=== PATIENT | female | born 1990 | race Caucasian/White ===

== ENCOUNTER 2019-05-05 08:00 | Outpatient (CLI) | payer OTHER ==
[2019-05-05 20:28] LABS: TRICHOMONAS VAGINALIS DNA NEGATIVE (NEGATIVE)
== END 2019-05-05 23:59 | disposition home or self-care (01) ==
LOC: LAB.R 08:00
PROVIDERS: ATTEND Nurse Practitioner Obstetrics & Gynecology
DX: Z36.85 Encounter for antenatal screening for Streptococcus B (principal); Z11.3 Encounter for screening for infections with a predominantly sexual mode of transmission
CPT/HCPCS: 87491; 87591; 87661; 87797

== ENCOUNTER 2019-05-25 06:29 | Inpatient (IN) | payer OTHER ==
[2019-05-25] MEDS ORDERED: SODIUM CHLORIDE FLUSH 0.9% 10 ML SYRINGE IVP PRN (06:46)
[2019-05-25 07:15] LABS: BASOPHILS % (AUTO) 0.3 %; EOSINOPHILS # (AUTO) 0.1 10^3/uL (0.0-0.7); HGB - HEMOGLOBIN 11.5 g/dL (12.0-16.0); LYMPHOCYTES % (AUTO) 28.7 %; MEAN CORPUSCULAR HEMOGLOBIN 27.4 pg (27.0-31.0); MEAN CORPUSCULAR HGB CONC 32.4 g/dL (32.0-36.0); MEAN CORPUSCULAR VOLUME 84.7 fL (81.0-99.0); MEAN PLATELET VOLUME 9.9 fL (7.9-10.8); MONOCYTES # (AUTO) 0.4 10^3/uL (0.0-1.0); MONOCYTES % (AUTO) 5.9 %; NEUTROPHILS # (AUTO) 4.4 10^3/uL (1.5-6.6); NEUTROPHILS % (AUTO) 62.4 %; PLT - PLATELET COUNT 214 10^3/uL (130-450); RED BLOOD COUNT 4.19 10^6/uL (4.20-5.40); RED CELL DISTRIBUTION WIDTH 13.6 % (12.0-15.0); WHITE BLOOD COUNT 7.1 x10^3/uL (4.8-10.8)
[2019-05-25] MEDS: SODIUM CHLORIDE FLUSH 0.9% 10 ML SYRINGE IVP SCH ×2 (10:35→16:42)
[2019-05-25] MEDS: LACTATED RINGERS 1,000 ML IV SCH ×2 (10:35→16:27)
[2019-05-25] MEDS: miSOPROStoL 100 MCG TABLET BC SCH ×2 (10:37→16:27)
--- NOTE | 2019-05-25 13:00 | HISTORY & PHYSICAL EXAMINATION ---
Admit History - Visit Reason Visit Reason: Other - : 2 Parity: 1 Premature: 0 Ectopic: 0 : 0 Care: positive: [facility] Risk/History: positive: None Complications This : positive: None Smoking Status: Never smoker - Mother's Labs Mother's Blood Type: positive: B Mother's RH: positive: Positive GBS: positive: Group B Step Negative Rubella Status: positive: Immune Meds/Allgy - Allergies Allergies/Adverse Reactions: Allergies Allergy/AdvReac Type Severity Reaction Status Date / Time No Known Drug Allergies Allergy Verified 05/25/19 06:52 Physical - Abdominal Exam Vital Signs: Temp Pulse Resp BP Pulse Ox 36.6 C 123 H 18 116/65 99 05/25/19 06:49 05/25/19 06:49 05/25/19 06:49 05/25/19 06:49 05/25/19 06:49 Plan for Labor - Plan For Labor Plan for Labor: HPI: This 28yo @ 39.2wks gestation by 10wk U/S who presented to [facility] f or elective induction of labor. She denies vaginal bleeding or leakage of fluid and reports +FM. Upon arrival she was noted to be 2-3/30/-2, posterior, vertex with intact membranes. She has been a patient of [facility] since her transfer of care from [facility] at 32wks gestation. Prior to this she had received consistent care through the duration of her which has remained uncomplicated. She was placed in observation status on [facility] for pre-induction cervical ripening. Dating Criteria: LMP: Initial U/S: 11/03/2018 @ 10.2 wks gives MIKE 05/30/2019 Serial exams- agree OBHx: G1: 03/18/2017 @ 41wks, epidural, female, 3232g G2: Current Medications: PNV; Flonase allergy relief PRN Allergies: NKDA PMHx: No significant Surgical Hx: [place] teeth removal; ear tubes x 2 Social Hx: Never smoker, no ETOH or IVDA. active duty Family Hx: Hypertension - father, mother; alcoholism - MGM, MGF; Stroke/CVA - MGM labs: B pos/Rubella immune Hgb 12.1; Hct 36.5; PLT 182 Hep B neg; Hep C neg VZV immune; RPR non-reactive HIV non-reactive GC/CT neg Pap 11/03/18 WNL - HPV neg Gentic testing: Serum integrated sceen negative Glucola 113 GBS & GC/CT NEG x3 Ultrasounds: Initial U/S: 11/03/2018 @ 10.2 wks gives MIKE 05/30/2019 FAS: WNL. Posterior placenta, no previa. 3VC. size c/w initial ultrasound dating Immunizations: TDAP 03/08/2019 Physical Exam: Normocephalic, atraumatic Heart RRR w/o M/G/R Lungs CTAB Abdomen gravid, soft, nontender. EFW 3100g SVE 2-3/30/-2, posterior, vertex. Intact membranes No contractions appreciated via tocometry FHR baseline 120s, moderate variability, + accels, no decels Bilateral LE's no edema Mood is good Assessment: 28yo @ 39.2wks gestation GBS neg Elective IOL Plan: Place in observation status on [facility] until SROM/AROM, active labor, or epidural placement. Continuous monitoring Pre-induction cervical ripening with misoprostol 50mcg BC q 4 hours Anticipate
--- NOTE | 2019-05-25 17:40 | PROVIDER PROGRESS NOTE ---
Labor Progress Note - Uterine Monitoring Uterine Monitoring Mode: positive: External toco Contraction Frequency (min/apart): 2-5 Contraction Intensity: positive: Moderate Uterine Resting Tone: positive: Soft - Monitoring Monitor Mode: positive: External ultrasound Heart Rate Variability: positive: Moderate (6-25 bmp) Accelerations: positive: Present, 15x15 Decelerations: positive: None Strip Review: positive: Category I - Vaginal Exam Dilation (in cm): 3 Effacement (%): 50 Station: -1 Cervical Position: Midposition - Labor Progress Note Labor Progress Note/Additional Text: S: Feeling the contractions are decreasing in both frequency and intensity. Was feeling them slightly earlier. She is doing well. Mood is good. O: FHR baseline 120s, moderate variability, +accels, no decels Contractions palpate mild every 3-5 minutes with soft resting tone. SVE 3/50/-1, posterior, vertex AROM moderate amount of clear fluid A: 28yo @ 39.2wks gestation Early labor Elective IOL GBS neg P: Expectant management x 4 hours. Give another dose of 50mcg BC misoprostol if contractions not increased in frequency and intensity x 4 hours Continuous monitoring Jacuzzi PRN. Nitrous Oxide PRN. Epidural per maternal request. Anticipate
[2019-05-25] MEDS ORDERED: OXYTOCIN/SODIUM CHLORIDE 500 ML IV ONE (19:39)
--- NOTE | 2019-05-25 20:49 | PROVIDER PROGRESS NOTE ---
Labor Progress Note - Uterine Monitoring Uterine Monitoring Mode: positive: External toco Contraction Frequency (min/apart): 2-4 Contraction Intensity: positive: Moderate to strong Uterine Resting Tone: positive: Soft - Monitoring Monitor Mode: positive: External ultrasound Heart Rate Baseline: 130 Heart Rate Variability: positive: Moderate (6-25 bmp) Accelerations: positive: Present, 15x15 Decelerations: positive: None Strip Review: positive: Category I - Vaginal Exam Dilation (in cm): 5 Effacement (%): 80 Station: 0 Cervical Position: Midposition - Labor Progress Note Labor Progress Note/Additional Text: S: Feeling contractions are starting to increase in intensity. Coping well. supportive at the bedside. She requests SVE. Mood is good. O: FHR baseline 130s, moderate variability, + accels, no decels Contractions palpate moderate every 2-4 minutes with soft resting tone SVE 5/80/0, midposition, vertex AROM x 3 hrs A: 28yo @ 39.2wks gestation by 10wk U/S Active labor P: Continue expectant management Jacuzzi PRN. Nitrous oxide PRN. Epidural PRN - intends unmedicated delivery May initiate intermittent monitoring Anticipate
[2019-05-25] MEDS ORDERED: ROPIVACAINE 0.2% 200 MG/100 ML BAG EP ONE (22:13)
--- NOTE | 2019-05-25 22:34 | ANESTHESIA ---
Pre-Anesthesia VS, & Labs - Diagnosis active labor - Procedure vaginal delivery Vital Signs: Temp Pulse Resp BP Pulse Ox 36.6 C 123 H 18 116/65 99 05/25/19 06:49 05/25/19 06:49 05/25/19 06:49 05/25/19 06:49 05/25/19 06:49 Height 5 ft 2 in Weight (kg) 71.214 kg - NPO Other (clear liquids) - Is Patient ?: Yes - Lab Results Current Lab Results: Laboratory Tests 05/25/19 07:00: WBC 7.1, RBC 4.19 L, Hgb 11.5 L, Hct 35.5 L, MCV 84.7, MCH 27.4, MCHC 32.4, RDW 13.6, Plt Count 214, MPV 9.9, Neut # (Auto) 4.4, Lymph # (Auto) 2.0, Amelia # (Auto) 0.4, Eos # (Auto) 0.1, Baso # (Auto) 0.0, Absolute Nucleated RBC 0.00, Nucleated RBC % 0.0 Fish Bones: 05/25/19 07:00 Home Medications and Allergies Active Medications Lactated Ringer's (Lr) 1,000 mls @ 150 mls/hr IV .Q6H40M [facility] Last Admin: 05/25/19 16:27 Dose: Not Given Misoprostol (Cytotec) 50 mcg BC Q4H [facility] Last Admin: 05/25/19 16:27 Dose: Not Given Sodium Chloride (Normal Saline Flush 0.9%) 10 ml IVP PRN PRN PRN Reason: NEEDED PER PROVIDER ORDERS Sodium Chloride (Normal Saline Flush 0.9%) 10 ml IVP 0100,0900,1700 [facility] Last Admin: 05/25/19 16:42 Dose: 10 ml PNV Allergies/Adverse Reactions: Allergies Allergy/AdvReac Type Severity Reaction Status Date / Time No Known Drug Allergies Allergy Verified 05/25/19 06:52 Anes History & Medical History - Anesthetic History Anesthesia Complications: reports: No previous complications - Medical History Cardiovascular: reports: High cholesterol Pulmonary: reports: None Gastrointestinal: reports: None Urinary: reports: None Neuro: reports: None Musculoskeletal: reports: None Endocrine/Autoimmune: reports: None Skin: reports: None Smoking Status: Never smoker Psychosocial: reports: No issues indicated - Surgical History Eyes Ears Nose Throat (EENT): Myringotomy (tubes) - Obstetrical History : 2 Parity: 1 Events: positive: None Complications: positive: None Exam General: Alert, Oriented x3, Cooperative, No acute distress Dental: WNL Mouth Openin Fingerbreadth Neck Mobility: Normal Mallampati classification: III Thyromental Distance: greater than 6 cm Mental/Cognitive Status: Alert/Oriented X3, Normal for patient Plan Anesthesia Type: Epidural Consent for Procedure(s) Verified and Reviewed: Yes Code Status: Attempt Resuscitation ASA classification: 2-Mild systemic disease Is this case an emergency?: No
[2019-05-25] MEDS ORDERED: ePHEDrine 50 MG/ML AMP IVP PRN (23:01)
[2019-05-25] MEDS ORDERED: NALOXONE 0.4 MG/ML VIAL IVP PRN (23:01)
[2019-05-25] MEDS ORDERED: ROPIVACAINE 0.2% 200 MG/100 ML BAG EP PRN (23:01)
[2019-05-25] MEDS ORDERED: NALBUPHINE 10 MG/ML AMP IVP PRN (23:01)
[2019-05-25] MEDS ORDERED: ONDANSETRON 4 MG/2 ML VIAL IVP PRN (23:01)
--- NOTE | 2019-05-26 00:32 | PROVIDER PROGRESS NOTE ---
Labor Progress Note - Uterine Monitoring Contraction Frequency (min/apart): 2-4 Contraction Intensity: positive: Strong Uterine Resting Tone: positive: Soft - Monitoring Heart Rate Baseline: 120 Heart Rate Variability: positive: Moderate (6-25 bmp) Accelerations: positive: Present, 15x15 Decelerations: positive: Early, Intermittent (<50% x20 min) Strip Review: positive: Category I - Labor Progress Note Labor Progress Note/Additional Text: S: Feeling comfortable with epidural. Feeling slightly anxious but overall doing well. supportive at the bedside. O: FHR baseline 120s, moderate variability, + accels, intermittent early decelerations and variables - overall reassuring Contractions palpate firm every 2-4 minutes with soft resting tone Last SVE 7-8/100/0, vertex A: 28yo @ 39.3wks gestation Active labor GBS neg FHR Category I P: Continuous monitoring Anticipate
[2019-05-26] MEDS: LACTATED RINGERS 1,000 ML IV SCH (02:19)
[2019-05-26] MEDS ORDERED: HYDROCORTISONE 1% CREAM 28 GM TUBE PR PRN (02:52)
[2019-05-26] MEDS ORDERED: WITCH HAZEL/GLYCERIN 1 PAD TOP PRN (02:52)
[2019-05-26] MEDS ORDERED: OXYTOCIN/SODIUM CHLORIDE 500 ML IV PRN (02:53)
--- NOTE | 2019-05-26 03:03 | DELIVERY NOTE ---
Delivery Note - Labor Labor: positive: Induced by ARM - Infant Delivery Method Delivery Method: positive: Spontaneous vaginal delivery - Cervical Ripening Method Cervical Ripening Method: positive: Misoprostil - Presentation Presentation: positive: Vertex, ANUSHKA - left occiput anterior - Nuchal Cord Nuchal Cord: positive: Present, Reduced - Amniotic Fluid Description Amniotic Fluid Description: positive: Clear - Episiotomy Type Episiotomy Type: positive: None - Laceration Laceration: positive: 1st degree, Labial - Suture Suture Type: positive: Vicryl Suture Size: positive: 3-0 - Delivery Outcome Delivery Outcome: positive: Livebirth - [place]: positive: Placed in direct skin contact with mother, Bulb syringe, Stimulated, Warmed, Finley used [place] sex: positive: Male - Cord Cord: positive: 3 vessels - Placenta Placenta: positive: Intact, Spontaneous - Estimated Blood Loss Estimated Blood Loss (in cc): 150 - Post Delivery Events Post Delivery Events: positive: No post delivery events - Delivery Comments (Free Text/Narrative) Delivery Comments (Free Text/Narrative): HPI: This 28yo @ 39.3wks gestation by 10wk U/S presented on 05/25/2019 for elective induction of labor. Cervix was 2-3/30/-2, posterior and vertex. FHR pattern demonstrated Category I baseline. She received 1 dose of 50mcg BC misprostol for effective pre-induction cervical ripening. AROM occurred at approximately 1730 and was noted to be a large amount of clear fluid. Normal labor course. Epidural placed upon maternal request. Pt progressed to c/c/+2 at 0215 with onset of active pushing at 0222. : Normal of viable male on 05/26/2019 @ 0232 in ANUSHKA position with compound right hand. Nuchal cord x 1 easily reduced. The was stimulated, dried, and placed skin to skin. 's 8/9 at 1 and 5 min respectively. The umbilical cord was allowed to stop pulsating at which time it was doubly clamped by CNM and cut by FOB. Pitocin administered via IV for hemostasis. Cord blood was obtained. 3VC. Placenta delivered spontaneously and intact at 0236. EBL 150mL. Fourth stage: Uterine fundus firm and there is no excessive bleeding. The perineum, vagina, and cervix were inspected and found to have a minor, 1st degree left labial laceration which was repaired using a 3-[address]-1 needle in standard fashion, under sterile conditions. Vaginal examination following repair was done. Tissues well approximated. initiated. Family bonding well. Both mother and baby were left in stable conditions.
[2019-05-26] MEDS: ACETAMINOPHEN 500 MG TABLET PO SCH ×3 (04:00→20:41)
[2019-05-26] MEDS: IBUPROFEN 800 MG TABLET PO SCH ×4 (04:00→23:43)
[2019-05-26] MEDS: DOCUSATE SODIUM 100 MG CAPSULE PO SCH ×2 (10:15→20:41)
[2019-05-27] MEDS: ACETAMINOPHEN 500 MG TABLET PO SCH (04:24)
[2019-05-27] MEDS: IBUPROFEN 800 MG TABLET PO SCH ×2 (05:38→11:30)
[2019-05-27 07:59] VITALS: BP 104/59
--- NOTE | 2019-05-27 08:01 | PROVIDER PROGRESS NOTE ---
Subjective - Subjective Subjective: S: Bonding well with baby. without difficulty. Pain well controlled with oral medications. Bleeding decreased and is light. Feeling well and desires to be discharged home today. O: BP 104/71, T 36.5, RR 15, HR 58 Heart RRR w/o M/G/R, lungs CTAB, abdomen soft and nontender with fundus firm at U-2, bilateral LE's no edema A: 28yo -->P2 PPD#1 s/p TSVD viable male Normal recovery P: Reviewed pp self care and warning s/sx Advised continuation of pNV while Advised continuation of ibuprofen and tylenol OTC PRN pain Return in 3 weeks for routine pp visit or sooner PRN. Objective - Vital Signs/Intake & Output Vital Signs: Vital Signs x48h Temp Pulse Resp BP Pulse Ox 05/27/19 04:00 36.5 C 58 L 16 107/71 99 Intake & Output: Intake & Output 05/24/19 05/25/19 05/26/19 05/27/19 23:59 23:59 23:59 23:59 Intake Total 1999 Balance 1999 - Lab Results Fish Bones: 05/25/19 07:00
--- NOTE | 2019-05-27 08:02 | Discharge Plan ---
Discharge Plan Problem Reviewed?: Yes Disposition: Home, Self Care Condition: Good Diet: Regular Activity Restrictions: No Restrictions Shower Restrictions: No Driving Restrictions: No Weight Bearing: Full Weight No Smoking: If you smoke, Please STOP! Call for help. Follow-up with: Kim Box CNM, ARNP [Provider Admit Priv/Credential] -
--- NOTE | 2019-05-27 08:35 | DISCHARGE SUMMARY ---
Physician: PRANEETH Monson DATE OF ADMISSION: 05/25/2019 DATE OF DISCHARGE: 05/27/2019 DIAGNOSES ON ADMISSION 1. A 28-year-old G2, P1-0-0-1. 2. Group B streptococcus negative. 3. Elective induction of labor. DIAGNOSES ON DISCHARGE 1. A 28-year-old G2, P2-0-0-2, status post spontaneous vaginal delivery on 05/26/2019. 2. . 3. Normal recovery. HISTORY OF PRESENT ILLNESS: She is a patient of [facility] who presented on 020 for elective induction of labor. Cervix was 2-3 cm dilated, 30% effaced, -2 position posterior a nd vertex. heart rate pattern demonstrated a category 1 throughout labor. She was given 1 dos e of 50 mcg buccal misoprostol for effective preinduction cervical ripening. Artificial rupture of m embranes occurred at approximately 1730. Patient progressed to spontaneously deliver a viable male i nfant on 05/26/2019 at 0232. Apgars were 8 and 9 at 1 and 5 minutes, respectively. EBL was 150 mL. The perineum, vagina and cervix were inspected and found to have a minor first-degree left labial la ceration, which was repaired using a 3-0 Vicryl on a CT1 needle in standard fashion under sterile con ditions. She has been doing well in her course. She is ambulating and tolerating a regular diet. She is urinating without difficulty and her lochia is normal. Her pain is well controlled with oral medications. She will be discharged home today on day #1 with instructions to continue he r vitamin while , and to continue taking ibuprofen and Tylenol [id number] as needed for pain management. She intends to followup with myself in 3 weeks for routine postpartu m visit or sooner if needed. She has been given precautions to call if she has any worsening fevers, chills, abdominal pain, increased bleeding or foul-smelling vaginal lochia. TD: 05/27/2019 08:07
[2019-05-27] MEDS: DOCUSATE SODIUM 100 MG CAPSULE PO SCH (10:14)
--- NOTE | 2019-05-27 13:45 | Labor Flowsheet ---
Labor Flowsheet Datetime Report Generated by CPN: 05/27/2019 13:45 Datetime: 05/26/2019 12:30 VITAL SIGNS NBP Sys/Rafaela/Mean (mmHg): 101 : 59 : 68 Pulse: 70 Datetime: 05/26/2019 04:44 Stage of : Recovery Respirations: 16 PAIN Pain Scale: 0 (Annotations: pain with fundal checks) Pain Presence: Intermittent Datetime: 05/26/2019 04:14 Pain Relief Measures: Pain Medication Given Datetime: 05/26/2019 03:44 Pain Assessment Comments: Pt wanting to take Tylenol and Motrin prior to cramping/discomfort becomm ing worse. Datetime: 05/26/2019 03:20 Patient Care Comments: IV SL Datetime: 05/26/2019 02:57 SpO2 (%): 100 Temperature (C): 37.0 Temperature Route: Oral Datetime: 05/26/2019 02:44 Anesthesia Comments: Epidural pump turned off Datetime: 05/26/2019 02:36 Medication Comments: Pitocin infusion began at 999 Datetime: 05/26/2019 02:32 STAGE 2 Stage 2 Comments: Delivery Datetime: 05/26/2019 02:29 UTERINE ACTIVITY Monitor Mode: External Frequency (min): 1.5-3 Duration (sec): 40-90 ASSESSMENT A Monitor Mode: Telemetry FHR Baseline Rate : 115 Variability: Moderate 6-25 bpm Accelerations: 15X15 Comments: pt pushing LaborFlag: Labor Datetime: 05/26/2019 02:28 Actions for Decelerations: Oxygen Applied Datetime: 05/26/2019 02:19 Communication Comments: Kim Charu in room at bedside Datetime: 05/26/2019 02:17 PATIENT CARE Patient Position/Activity: Left Tilt Datetime: 05/26/2019 02:15 VAGINAL EXAM Dilatation (cm): 10.0 Effacement (%): 100 Station: 1 Exam by: B.Messersmith, RN Vaginal Bleeding: Normal Show Datetime: 05/26/2019 02:00 Decelerations: None Category: Category I Datetime: 05/26/2019 01:00 Contraction Comments: coupling noted Datetime: 05/25/2019 23:50 Monitor Interventions for FHR: Ultrasound Adjusted Datetime: 05/25/2019 23:30 Cervix, Consistency: Soft Cervix, Position: Midposition I/O Interventions: Manning Cath Inserted Datetime: 05/25/2019 23:29 Quality: Moderate Pattern: Normal: <= 5 Contractions in 10 Minutes Resting Tone (Palpate): Relaxed Datetime: 05/25/2019 22:54 Epidural Procedure: Loading Dose Epidural Procedure Other: Pump Started Datetime: 05/25/2019 22:35 PROCEDURE TIME OUT Procedure Verify: Correct Patient Identity; Accurate Procedure Consent Form; Agreement on Procedure to be Done; Safety Precautions Based on Patient History or Medication Use ANESTHESIA Anesthesia Plans: Epidural Epidural Positioning: Sitting Datetime: 05/25/2019 22:20 Pain Coping: Breathing Through Contractions Datetime: 05/25/2019 22:19 Pain Management: Epidural Datetime: 05/25/2019 22:09 FHR Baseline Changes: No Baseline Change Datetime: 05/25/2019 21:04 Pain Type: Contraction Datetime: 05/25/2019 21:02 COMMUNICATION Communication: RN at Bedside Datetime: 05/25/2019 20:08 Membranes Ruptured Date/Time: 05/25/2019 17:29 Amniotic Fluid Amount: Small Amniotic Fluid Odor: Normal Datetime: 05/25/2019 19:48 TEACHING Instructional Method: Verbal; Patient Instructed; Family/Support Person Instructed; Verbalized Unde rstanding Plan of Care: Plan of Care Discussed Datetime: 05/25/2019 19:38 Pain Location: Abdomen MATERNAL ASSESSMENT Level of Consciousness: Fully Conscious Headache: Denies Breath Sounds, Left: Clear and Equal Breath Sounds, Right: Clear and Equal Nausea/Vomiting: Denies RUQ Epigastric Pain: Denies Datetime: 05/25/2019 18:03 Monitor Interventions for UA: [place] Adjusted Datetime: 05/25/2019 18:00 Hygiene: Underpad Changed Datetime: 05/25/2019 17:29 Membrane Status: Ruptured Membranes Rupture Method: Artificial Amniotic Fluid Color: Clear Datetime: 05/25/2019 17:27 Provider Reviewed Strip: Yes Provider Notified (Name): Charu Datetime: 05/25/2019 15:20 Notification Reason: Uterine Activity Datetime: 05/25/2019 10:38 MEDICATIONS Cervical Ripening Agents: Cytotec @
== END 2019-05-27 13:40 | disposition home or self-care (01) | DRG 807 ==
LOC: WFO 06:29 → FBP 06:34 → WFO 06:45 → FBP 06:46 → OBS 05-26 13:56
PROVIDERS: ADMIT Nurse Practitioner Obstetrics & Gynecology; ATTEND Nurse Practitioner Obstetrics & Gynecology
PROC: 10907ZC Drainage of Amniotic Fluid, Therapeutic from Products of Conception, Via Natural or Artificial Opening (ICD-10-PCS; 2019-05-25)
PROC: 10E0XZZ Delivery of Products of Conception, External Approach (ICD-10-PCS; principal; 2019-05-26)
PROC: 0HQ9XZZ Repair Perineum Skin, External Approach (ICD-10-PCS; 2019-05-26)
DX: O32.6XX0 Maternal care for compound presentation, not applicable or unspecified (principal); Z37.0 Single live birth; O70.0 First degree perineal laceration during delivery; O69.81X0 Labor and delivery complicated by cord around neck, without compression, not applicable or unspecified; Z3A.39 39 weeks gestation of pregnancy
CPT/HCPCS: 85025; A9270; J7120